=== PATIENT | female | born 1965 | race Caucasian/White ===

== ENCOUNTER 2024-06-01 06:00 | Day surgery (SDC) | payer BC ==
[2024-06-01] MEDS ORDERED: Ringers Lactate 1,000 ML IV ONE (06:18)
[2024-06-01] MEDS ORDERED: KETOROLAC 30 MG/ML INJ ONE (06:29)
[2024-06-01] MEDS ORDERED: propofoL 200 MG/20 ML VIAL IV ONE (06:29)
[2024-06-01] MEDS ORDERED: FENTANYL CITR 100 MCG/2 ML ONE (06:29)
[2024-06-01] MEDS ORDERED: MIDAZOLAM HCL 2 MG/2 ML INJ ONE (06:29)
[2024-06-01] MEDS ORDERED: ONDANSETRON 4 MG/2 ML VIAL ONE (06:29)
[2024-06-01] MEDS ORDERED: LIDOCAINE 1% MPF 5 ML VIAL ONE (06:29)
[2024-06-01] MEDS: CEFAZOLIN SODIUM 1 GM/VIAL ONE (06:44)
[2024-06-01] MEDS: ACETAMINOPHEN 500 MG TAB ONE (06:45)
[2024-06-01] MEDS: NA CHLORIDE 0.9% 100 ML ONE (06:45)
[2024-06-01] MEDS ORDERED: EPHEDRINE SULF 50 MG/ML VIAL ONE (07:46)
[2024-06-01] MEDS ORDERED: CEFAZOLIN SODIUM 1 GM/VIAL ONE (07:53)
[2024-06-01] MEDS: BUPIVACAINE 0.5% PF 10 ML VIAL ONE ×2 (08:07→08:41)
--- NOTE | 2024-06-01 10:14 | RAD REPORT ---
EXAM: Fluoroscopy use, Fluoroscopy <1 Hour HISTORY: LT FOOT TAYLORS BUNIONECTOMY COMPARISON: None FINDINGS: Multiple images were sent to PACS, during a fluoroscopically guided procedure. No radiologi st was involved in protocoling or performance of the study, and no radiologist was present for the duration of the procedure. No interpretation of the saved images will be provided. Total fluoroscopy time: 0.1 minutes. IMPRESSION: Documentation of fluoroscopy use as above.
[2024-06-01 11:11] VITALS: BP 111/67; TEMP 97; O2SAT 100
== END 2024-06-01 10:20 | disposition home or self-care (01) ==
LOC: OR 06:00
PROVIDERS: ATTEND Podiatrist Foot & Ankle Surgery
PROC: 0QBP0ZZ Excision of Left Metatarsal, Open Approach (ICD-10-PCS; principal; 2024-06-01 07:15)
DX: M21.622 Bunionette of left foot (principal); M21.6X2 Other acquired deformities of left foot
CPT/HCPCS: 76000; 28296; J2704; J2003; J2250; J3010; J2405; J7120; J0690 ×2